=== PATIENT | male | born 1935 | race Caucasian/White ===

== ENCOUNTER 2018-09-12 07:56 | Inpatient (IN) | payer MEDICARE, OTHER ==
[2018-09-12 08:27] LABS: ABSOLUTE BASOPHILS # (AUTO) 0.2 10^3/uL (0.0-0.2); ABSOLUTE EOSINOPHILS # (AUTO) 0.2 10^3/uL (0.0-0.6); ABSOLUTE LYMPHOCYTES (AUTO) 1.9 10^3/uL (0.5-4.7); ABSOLUTE NEUT (AUTO) 9.2 10^3/uL (1.7-8.2); BASOPHILS % (AUTO) 1.2 % (0-2); EOSINOPHILS % (AUTO) 1.8 % (0-6); HEMATOCRIT 35.7 % (37.9-51.0); HEMOGLOBIN 11.9 g/dL (13.5-17.0); LYMPHOCYTES % (AUTO) 13.7 % (13-45); MEAN CORPUSCULAR HGB CONC 33.4 g/dL (32.0-36.0); MEAN CORPUSCULAR VOLUME 102 fl (80-97); MONOCYTES % (AUTO) 15.1 % (3-13); PLATELET COUNT 167 10^3/uL (150-450); RED BLOOD COUNT 3.51 10^6/uL (4.35-5.55); RED CELL DISTRIBUTION WIDTH 16.4 % (11.5-14.0); SEGMENTED NEUTROPHILS % (AUTO) 68.2 % (42-78); TOTAL CELLS COUNTED % (AUTO) 100 %; WHITE BLOOD COUNT 13.5 10^3/uL (4.0-10.5)
--- NOTE | 2018-09-12 08:40 | RADIOLOGY REPORT (SQ) ---
EXAM DESCRIPTION: CHEST SINGLE VIEW COMPLETED DATE/TIME: 09/12/2018 8:26 am REASON FOR STUDY: fever COMPARISON: None. EXAM PARAMETERS: NUMBER OF VIEWS: One view. TECHNIQUE: Single frontal radiographic view of the chest acquired. RADIATION DOSE: NA LIMITATIONS: None. FINDINGS: LUNGS AND PLEURA: No opacities, masses or pneumothorax. No pleural effusion. MEDIASTINUM AND HILAR STRUCTURES: No masses. Contour normal. HEART AND VASCULAR STRUCTURES: Heart normal in size. Normal vasculature. BONES: No acute findings. HARDWARE: None in the chest. OTHER: No other significant finding. IMPRESSION: NO ACUTE RADIOGRAPHIC FINDING IN THE CHEST. TECHNICAL DOCUMENTATION: JOB ID: [id number] [employer]- All Rights Reserved Reading location - IP/workstation name: [email or web address]
[2018-09-12 08:53] LABS: VENOUS BLOOD BASE EXCESS 3.2 mmol/L; VENOUS BLOOD HCO3 25.6 mmol/L (20-32); VENOUS BLOOD PCO2 33.4 mmHg (35-63); VENOUS BLOOD PH 7.5 (7.30-7.42)
--- NOTE | 2018-09-12 09:22 | ER Document Report ---
Entered by CATINA BARRERA SCRIBE 09/12/18 0826 Acting as scribe for:ELLIS VELASCO MD ED General - General Chief Complaint: Fever Stated Complaint: POSSIBLE SEPSIS Time Seen by Provider: 09/12/18 08:08 Mode of Arrival: Medic Information source: Emergency Med Personnel Notes: Patient is an 83 year old male with CHF, GERD, BPH, felix catheter, G tube, presents to the emergency department via EMS from home due to a fever. Nurse reports the patient was previously in a mcc in [place] and recently moved here with family. She reports the patient was recently diagnosed with an UTI on 09/09/18 and placed on Macrodantin. Patient does not speak therefo re no further history was obtained. EMS found the patient to be febrile with a temperature of 101.7 and administered 975mg of Tylenol rectally. Late history obtained from son: Son states for the last 2 days, the patient has been generally weak, not eating or drinking and running intermittent fevers. He states this morning around 0145, the patient became very "lethargic" and was noted to be febrile with a temperature of 102.0 so they proceeded to call EMS. Son states the patient is normally able to ambulate with a walker, talk and watch TV. He states the patient lived alone in [place], [place]. On 05/30/2018 the patient was ambulatory, driving, and taking care of his own affairs. On July 06, the son found the patient laying on the floor for what appeared to be several days and was subsequently admitted to ICU. He states it appeared the patient had a stroke but there was no evidence of one on scans. Son states the patient was released from rehab 13 days ago and has been living here in [place] with him since. He states the patient's PEG tube was placed while in the ICU but states the patient has not had to use it until onset of his recent symptoms. At home he has shown significant mental decline since his hospitalization, he watches TV, he mostly sits around. He occasionally ask for a pen and paper to take notes but never gets to the point of actually writing down anything. He was walking with a walker at home recently until the past 2 days where he is been somewhat lethargic, and not eating. He did start coughing a lot about 40 this morning. He did have his Felix catheter changed yesterday by home health. TRAVEL OUTSIDE OF THE [place] IN LAST 30 DAYS: No - Related Data Allergies/Adverse Reactions: aspirin Allergy (Verified 09/12/18 08:06) Penicillins Allergy (Verified 09/12/18 08:06) Past Medical History - General Information source: Relative, Emergency Med Personnel - Social History Smoking Status: Unknown if Ever Smoked Frequency of alcohol use: None Lives with: Family Family History: Reviewed & Not Pertinent - Past Medical History Cardiac Medical History: Reports: Hx Congestive Heart Failure Renal/ Medical History: Reports: Hx Benign Prostatic Hyperplasia GI Medical History: Reports: Hx Gastroesophageal Reflux Disease Review of Systems - Review of Systems Notes: ROS obtained from son, EMS and nursing staff. -: Yes ROS unobtainable due to patient's medical condition Constitutional: See HPI, Fever, Malaise, Weakness EENT: No symptoms reported Cardiovascular: No symptoms reported Respiratory: No symptoms reported Gastrointestinal: See HPI, Poor appetite, Poor fluid intake Genitourinary: No symptoms reported Male Genitourinary: No symptoms reported Musculoskeletal: No symptoms reported Skin: No symptoms reported Hematologic/Lymphatic: No symptoms reported Neurological/Psychological: No symptoms reported -: Yes All other systems reviewed and negative Physical Exam - Vital signs Vitals: Temp Pulse Resp BP Pulse Ox 101.7 F H 115 H 16 177/94 H 95 09/12/18 08:00 09/12/18 08:00 09/12/18 08:00 09/12/18 08:00 09/12/18 08:00 - Notes Notes: GENERAL: Alert, patient is not speaking and does not seem to understand what is going on. No acute distress. HEAD: Normocephalic, atraumatic. EYES: Pupils equal, round, and reactive to light. Extraocular movements intact. ENT: Oral mucosa dry, tongue midline. NECK: Full range of motion. Supple. Trachea midline. LUNGS: Clear to auscultation bilaterally, no wheezes, rales, or rhonchi. The patient does seem to be hyperventilating with a pulse-ox of 95%. HEART: Regular rate and rhythm. Tachycardia. No murmurs, gallops, or rubs. ABDOMEN: G tube in place. Soft, non-tender. Non-distended. Bowel sounds present in all 4 quadrants. No guarding, rigidity, or rebound. : Felix catheter in place. EXTREMITIES: Minimal movement of the extremities. No edema, radial and dorsalis pedis pulses 2/4 bilaterally. No cyanosis. Toes point downward with Babinksi testing, not hyperreflexive. NEUROLOGICAL: Alert. Does not speak. PSYCH: Does not speak. SKIN: Warm, dry. Skin is tight suggesting something like scleroderma. Course - Vital Signs Vital signs: Temp Pulse Resp BP Pulse Ox 99.6 F 115 H 29 H 145/81 H 96 09/12/18 12:55 09/12/18 08:00 09/12/18 13:01 09/12/18 13:01 09/12/18 13:01 - Laboratory Result Diagrams: 09/12/18 08:00 09/12/18 09:07 Laboratory results interpreted by me: 09/12/18 09/12/18 09/12/18 08:00 08:36 09:07 WBC 13.5 H RBC 3.51 L Hgb 11.9 L Hct 35.7 L MCV 102 H MCH 34.0 H RDW 16.4 H Monocytes % 15.1 H Absolute Neutrophils 9.2 H Absolute Monocytes 2.0 H VBG pH 7.50 H VBG pCO2 33.4 L BUN 21 H Creatine Kinase < 20 L Albumin 3.2 L Urine Protein Urine Urobilinogen Ur Leukocyte Esterase Urine Ascorbic Acid 09/12/18 09:36 WBC RBC Hgb Hct MCV MCH RDW Monocytes % Absolute Neutrophils Absolute Monocytes VBG pH VBG pCO2 BUN Creatine Kinase Albumin Urine Protein >=500 H Urine Urobilinogen 4.0 H Ur Leukocyte Esterase MODERATE H Urine Ascorbic Acid 40 H - Diagnostic Test Radiology reviewed: Image reviewed, Reports reviewed - X-ray does not show an acute process. - EKG Interpretation by Me EKG shows normal: Sinus rhythm, [place], Intervals, QRS Complexes, ST-T Waves Rate: Tachycardia - 113 [place]/QRS: Left axis deviation When compared to previous EKG there are: Previous EKG unavailable - Consults Laura Conn NP Time consulted: 11:16 Consulted provider: will come to ER Critical Care Note - Critical Care Note Total time excluding time spent on procedures (mins): 35 Discharge - Discharge Clinical Impression: Fever Qualifiers: Fever type: unspecified Qualified Code(s): R50.9 - Fever, unspecified Urinary tract infection Qualifiers: Urinary tract infection type: catheter-associated UTI Indwelling urinary catheter type: indwelling urethral catheter Encounter type: initial encounter Qualified Code(s): T83.511A - Infection and inflammatory reaction due to indwelling urethral catheter, initial encounter Altered mental status Qualifiers: Altered mental status type: unspecified Qualified Code(s): R41.82 - Altered mental status, unspecified Condition: Stable Disposition: ADMITTED INPATIENT Admitting Provider: [facility] (Hospitalist) Unit Admitted: Telemetry Scribe Attestation: 09/12/18 09:31 I personally performed the services described in the documentation, reviewed and edited the documentation which was dictated to the scribe in my presence, and it accurately records my words and actions. I personally performed the services described in the documentation, reviewed and edited the documentation which was dictated to the scribe in my presence, and it accurately records my words and actions.
[2018-09-12 09:49] LABS: ALANINE AMINOTRANSFERASE 25 U/L (21-72); ALBUMIN 3.2 g/dL (3.5-5.0); ALKALINE PHOSPHATASE 85 U/L (38-126); ANION GAP 10 (5-19); ASPARTATE AMINO TRANSFERASE 44 U/L (17-59); BILIRUBIN,DIRECT 0.4 mg/dL (0.0-0.4); BILIRUBIN,TOTAL 0.7 mg/dL (0.2-1.3); BLOOD UREA NITROGEN 21 mg/dL (7-20); CALCIUM 8.8 mg/dL (8.4-10.2); CARBON DIOXIDE 25 mmol/L (22-30); CHLORIDE 105 mmol/L (98-107); GLUCOSE 96 mg/dL (75-110); SODIUM 140.4 mmol/L (137-145); TOTAL PROTEIN 7.9 g/dL (6.3-8.2)
[2018-09-12 09:51] LABS: CREATINE KINASE < 20 U/L (55-170)
[2018-09-12 09:56] LABS: AMORPHOUS SEDIMENT,URINE TRACE /HPF; APPEARANCE,URINE CLOUDY; BILIRUBIN,URINE NEGATIVE (NEGATIVE); COLOR,URINE AMBER; GLUCOSE, URINE NEGATIVE (NEGATIVE); KETONES,URINE NEGATIVE (NEGATIVE); LEUKOCYTE ESTERASE,URINE MODERATE (NEGATIVE); NITRITE,URINE NEGATIVE (NEGATIVE); PROTEIN,URINE >=500 mg/dL (NEGATIVE); URINE SPECIFIC GRAVITY 1.022
[2018-09-12 10:03] LABS: CREATINE KINASE MB < 0.22 ng/mL (<4.55)
[2018-09-12 10:06] LABS: TROPONIN I 0.064 ng/mL
[2018-09-12] MEDS ORDERED: LEVOFLOXACIN 750 MG/D5W RTU 750 MG/150 ML RTUPB IV ONE (10:36)
[2018-09-12] MEDS ORDERED: NORMAL SALINE 1000 ML 1,000 ML IV ONE (11:40)
[2018-09-12] MEDS ORDERED: NORMAL SALINE 1000 ML 1,000 ML IV PRN (12:28)
[2018-09-12] MEDS ORDERED: CEFAZOLIN 2 GM/D5W RTU 2 GM/50 ML RTUPB IV SCH ×2 (15:00→18:00)
[2018-09-12] MEDS: ENOXAPARIN SODIUM INJ 30 MG/0.3 ML DISP.SYRIN SUBCUT SCH (15:20)
--- NOTE | 2018-09-12 17:07 | PDOC H&P ---
History of Present Illness Admission Date/PCP: 09/12/18 11:42 FREDDIE DONALDSON DO Patient complains of: AMS History of Present Illness: SHANICE STRINGER SR is a 83 year old male with a PMH of CHF, UTI, encephalopathy. He presented to [facility] for AMS and fever (T-max 102). The patient was recently seen by his PCP and was diagnosed with a UTI 09/10. He was started on p.o. Macrobid, but family states the patient became more and more altered over the last 48 hours. Today, he spiked a fever to 102, which prompted the family to bring him to the emergency department. Of note, the patient suffered a traumatic injury a few months ago and was hospitalized in [place] and subsequently spent 1 month in acute rehab. There is no evidence of stroke on MRI, the patient's functional status is now minimally ambulatory, requiring a PEG tube for feeding and has a chronic indwelling Amaral catheter. Upon arrival to the emergency department, the patient's vital signs were BP 177/94 T 001.7 HR 115 SPO2 95% on RA. EKG shows sinus tachycardia, no infarction or ischemia. CXR is WNL, no significant cardiopulmonary pathology. Laboratory studies indicative of leukocytosis (WBC 13), mild anemia (Hgb 11), urinalysis indicative of UTI (moderate leukoesterase, WBC 153). Upon assessment, the patient is resting comfortably in bed on room air with family at bedside. Patient is able to tell me his name, but he does not know the date or his location or why he is in the hospital. Patient appears very thin, almost cachectic. His ribs are visible. His arms and legs are very thin. The patient does have full range of motion with his extremities. Lungs are clear to auscultation. (+) Systolic murmur. Abdomen soft, nontender, nondistended. Amaral catheter in place, urine appears yellow and cloudy. Plan to admit to hospitalist service for complicated urinary tract infection. Past Medical History Cardiac Medical History: Reports: Congestive Heart Failure GI Medical History: Reports: Gastroesophageal Reflux Disease Past Surgical History Past Surgical History: Reports: Other - PEG TUBE PLACEMENT Social History Information Source: Patient Lives with: Family Smoking Status: Former Smoker Frequency of Alcohol Use: None Hx Recreational Drug Use: Yes Drugs: None Hx Prescription Drug Abuse: Yes - Advance Directive Resuscitation Status: Do Not Resuscitate Family History Family History: Reviewed & Not Pertinent Parental Family History Reviewed: Yes Children Family History Reviewed: Yes Sibling(s) Family History Reviewed.: Yes Medication/Allergy Home Medications: Furosemide [Lasix 20 mg Tablet] 20 mg PO QAM 09/12/18 Nitrofurantoin Macrocrystal [Macrodantin] 100 mg PO BID 09/12/18 Pantoprazole Sodium [Protonix [address] Tablet] 40 mg PO BID@0600,1700 09/12/18 Tamsulosin HCl [Flomax] 0.4 mg PO QPM 09/12/18 Allergies/Adverse Reactions: aspirin Allergy (Verified 09/12/18 08:06) Penicillins Allergy (Verified 09/12/18 08:06) Review of Systems ROS unobtainable: Due to mental status Physical Exam Vital Signs: Temp Pulse Resp BP Pulse Ox 98.2 F 95 21 H 138/83 H 95 09/12/18 14:11 09/12/18 14:11 09/12/18 14:11 09/12/18 14:11 09/12/18 14:11 Intake & Output 09/11/18 09/12/18 09/13/18 06:59 06:59 06:59 Intake Total 1150 Balance 1150 Weight 61.7 kg General appearance: PRESENT: thin Head exam: PRESENT: atraumatic Eye exam: PRESENT: conjunctiva pink, PERRLA Mouth exam: PRESENT: moist, tongue midline Teeth exam: PRESENT: poor dentation Neck exam: PRESENT: full ROM Respiratory exam: PRESENT: clear to auscultation tram, symmetrical, unlabored Cardiovascular exam: PRESENT: RRR Pulses: PRESENT: normal radial pulses, normal dorsalis pedis pul GI/Abdominal exam: PRESENT: soft, other - peg tube in place. ABSENT: distended, tenderness Rectal exam: PRESENT: deferred Extremities exam: ABSENT: pedal edema Musculoskeletal exam: PRESENT: normal inspection. ABSENT: ambulatory Neurological exam: PRESENT: alert, awake, oriented to person. ABSENT: oriented to place, oriented to time, oriented to situation Psychiatric exam: ABSENT: appropriate affect - confused Skin exam: PRESENT: dry, intact, normal color Results Laboratory Results: 09/12/18 08:00 09/12/18 09:07 09/12/18 09/12/18 09/12/18 08:00 08:00 08:36 WBC 13.5 H RBC 3.51 L Hgb 11.9 L Hct 35.7 L MCV 102 H MCH 34.0 H MCHC 33.4 RDW 16.4 H Plt Count 167 Seg Neutrophils % 68.2 Lymphocytes % 13.7 Monocytes % 15.1 H Eosinophils % 1.8 Basophils % 1.2 Absolute Neutrophils 9.2 H Absolute Lymphocytes 1.9 Absolute Monocytes 2.0 H Absolute Eosinophils 0.2 Absolute Basophils 0.2 VBG pH VBG pCO2 VBG HCO3 VBG Base Excess Sodium Cancelled Potassium Cancelled Chloride Cancelled Carbon Dioxide Cancelled Anion Gap Cancelled BUN Cancelled Creatinine Cancelled Est GFR ( Amer) Cancelled Est GFR (Non-Af Amer) Cancelled Glucose Cancelled Lactic Acid 1.5 Calcium Cancelled Magnesium Cancelled Total Bilirubin Cancelled AST Cancelled ALT Cancelled Alkaline Phosphatase Cancelled Total Protein Cancelled Albumin Cancelled Urine Color Urine Appearance Urine pH Ur Specific [place] Urine Protein Urine Glucose (UA) Urine Ketones Urine Blood Urine Nitrite Ur Leukocyte Esterase Urine WBC (Auto) Urine RBC (Auto) 09/12/18 09/12/18 09/12/18 08:36 09:07 09:36 WBC RBC Hgb Hct MCV MCH MCHC RDW Plt Count Seg Neutrophils % Lymphocytes % Monocytes % Eosinophils % Basophils % Absolute Neutrophils Absolute Lymphocytes Absolute Monocytes Absolute Eosinophils Absolute Basophils VBG pH 7.50 H VBG pCO2 33.4 L VBG HCO3 25.6 VBG Base Excess 3.2 Sodium 140.4 Potassium 4.0 Chloride 105 Carbon Dioxide 25 Anion Gap 10 BUN 21 H Creatinine 1.01 Est GFR ( Amer) > 60 Est GFR (Non-Af Amer) > 60 Glucose 96 Lactic Acid Calcium 8.8 Magnesium 1.7 Total Bilirubin 0.7 AST 44 ALT 25 Alkaline Phosphatase 85 Total Protein 7.9 Albumin 3.2 L Urine Color JUANCHO Urine Appearance CLOUDY Urine pH 6.0 Ur Specific [place] 1.022 Urine Protein >=500 H Urine Glucose (UA) NEGATIVE Urine Ketones NEGATIVE Urine Blood NEGATIVE Urine Nitrite NEGATIVE Ur Leukocyte Esterase MODERATE H Urine WBC (Auto) 153 Urine RBC (Auto) 18 09/12/18 09/12/18 09/12/18 08:00 08:00 09:07 Creatine Kinase Cancelled CK-MB (CK-2) Cancelled < 0.22 Troponin I Cancelled 0.064 09/12/18 09:07 Creatine Kinase < 20 L CK-MB (CK-2) Troponin I Impressions: Chest X-Ray 09/12/18 08:16 IMPRESSION: NO ACUTE RADIOGRAPHIC FINDING IN THE CHEST. Status: Imported from PACS Assessment and Plan - Diagnosis (1) Altered mental status Qualifiers: Altered mental status type: unspecified Qualified Code(s): R41.82 - Altered mental status, unspecified Is this a current diagnosis for this admission?: Yes Plan: Secondary to infection Following IVF resuscitation in the emergency department, [facility] patient's mental status returned to close to baseline Maintenance IVF Nursing bedside swallow evaluation, if failed may use PEG for enteral feeding (2) Urinary tract infection Qualifiers: Urinary tract infection type: catheter-associated UTI Indwelling urinary catheter type: indwelling urethral catheter Encounter type: initial encounter Qualified Code(s): T83.511A - Infection and inflammatory reaction due to indwelling urethral catheter, initial encounter; N39.0 - Urinary tract infection, site not specified Is this a current diagnosis for this admission?: Yes Plan: Diagnosed with UTI on 09/09 Treated with Macrobid p.o. Patient remains symptomatic Initially urinalysis today indicative of UTI Will obtain culture and sensitivities Empirically treated with IV cefepime (3) CHF (congestive heart failure) Qualifiers: Heart failure type: unspecified Is this a current diagnosis for this admission?: Yes Plan: According to family, the patient was diagnosed with CHF during his previous hospitalization in [place] Attempted to obtain records from [place], [place] Not taking any antihypertensives, only on daily Lasix, which is currently on hold for treatment of complicated UTI - Time Time Spent with patient: 15-24 minutes Medications reviewed and adjusted accordingly: Yes Anticipated discharge: Home - Inpatient Certification Based on my medical assessment, after consideration of the patient's comorbidities, presenting symptoms, or acuity I expect that the services needed warrant INPATIENT care.: Yes I certify that my determination is in accordance with my understanding of Medicare's requirements for reasonable and necessary INPATIENT services [42 CFR 412.3e].: Yes Medical Necessity: Need For IV Fluids, Need for IV Antibiotics, Risk of Complication if Not Cared For in Hospital
[2018-09-12] MEDS ORDERED: CEFEPIME 2 GM/D5W RTU 2 GM/50 ML RTUPB IV SCH (17:30)
[2018-09-12] MEDS ORDERED: CEFAZOLIN SODIUM 2 GM in DEXTROSE 5%-WATER 100 ML IV SCH (18:00)
[2018-09-12] MEDS: PANTOPRAZOLE SODIUM 40 MG PACKET.DR NG SCH (18:07)
[2018-09-12] MEDS: TAMSULOSIN HCL 0.4 MG CAP.SR.24H PO SCH (18:10)
--- NOTE | 2018-09-12 19:27 | EKG REPORT ---
SEVERITY:- DEFECTIVE ECG - BORDERLINE LEFT AXIS DEVIATION SINUS RHYTHM BASELINE ARTIFACT : Confirmed by: Renita Lu MD 12-Sep-2018 19:25:43
[2018-09-12] MEDS: CEFEPIME HCL 2 GM in DEXTROSE 5%-WATER 50 ML IV SCH (21:41)
[2018-09-13] MEDS: PANTOPRAZOLE SODIUM 40 MG PACKET.DR NG SCH ×2 (05:30→17:41)
[2018-09-13 06:10] LABS: HEMATOCRIT 29.9 % (37.9-51.0); HEMOGLOBIN 10.3 g/dL (13.5-17.0); MEAN CORPUSCULAR HEMOGLOBIN 34.5 pg (27.0-33.4); MEAN CORPUSCULAR HGB CONC 34.3 g/dL (32.0-36.0); MEAN CORPUSCULAR VOLUME 100 fl (80-97); RED BLOOD COUNT 2.98 10^6/uL (4.35-5.55); WHITE BLOOD COUNT 9.4 10^3/uL (4.0-10.5)
[2018-09-13 06:30] LABS: ALANINE AMINOTRANSFERASE 22 U/L (21-72); ALBUMIN 2.5 g/dL (3.5-5.0); ALKALINE PHOSPHATASE 62 U/L (38-126); ANION GAP 7 (5-19); ASPARTATE AMINO TRANSFERASE 36 U/L (17-59); BILIRUBIN,DIRECT 0.3 mg/dL (0.0-0.4); BLOOD UREA NITROGEN 20 mg/dL (7-20); CALCIUM 8.5 mg/dL (8.4-10.2); CARBON DIOXIDE 22 mmol/L (22-30); CHLORIDE 108 mmol/L (98-107); CHOLESTEROL 127.84 mg/dL (0-200); GLUCOSE 89 mg/dL (75-110); POTASSIUM 3.8 mmol/L (3.6-5.0); SODIUM 136.8 mmol/L (137-145); TOTAL PROTEIN 6.5 g/dL (6.3-8.2); TRIGLYCERIDES 65 mg/dL (<150)
[2018-09-13 06:40] LABS: PLATELET COUNT 92 10^3/uL (150-450)
[2018-09-13 06:41] LABS: DIRECT LDL 68 mg/dL (<100)
[2018-09-13] MEDS ORDERED: FUROSEMIDE 20 MG TABLET PO SCH (08:00)
[2018-09-13] MEDS: ENOXAPARIN SODIUM INJ 30 MG/0.3 ML DISP.SYRIN SUBCUT SCH (10:31)
[2018-09-13] MEDS: CEFEPIME HCL 2 GM in DEXTROSE 5%-WATER 50 ML IV SCH ×2 (10:36→21:14)
[2018-09-13] MEDS ORDERED: VANCOMYCIN HCL 0 MG in DEXTROSE 5%-WATER 250 ML IV NR (10:45)
[2018-09-13] MEDS: VANCOMYCIN HCL 1,250 MG in DEXTROSE 5%-WATER 250 ML IV SCH (14:24)
--- NOTE | 2018-09-13 15:55 | PDOC PROGRESS REPORT ---
Subjective Progress Note for:: 09/13/18 Subjective:: SHANICE STRINGER SR is a 83 year old male with a PMH of CHF, UTI, encephalopathy. He is admitted for complicated UTI. Patient was seen this morning on rounds, family is at the bedside. Patient is eating his breakfast, able to tolerate roughly 50%. The patient is alert and oriented x 3, able to answer questions appropriately. When probed with more complex questions (why are you in the hospital?), He is unable to answer. The patient also makes interjections that have nothing to do with the current conversation. Original C&S from UA done 09/10 is (+) for e.coli and enterococcous. Continue to treat with Cefepime and vancomycin. Awaiting C&S from repeat UA. The patient will remain hospitalized for complicated UTI. Reason For Visit: UTI Physical Exam Vital Signs: Temp Pulse Resp BP Pulse Ox 98.4 F 80 18 131/50 H 96 09/13/18 12:00 09/13/18 12:00 09/13/18 12:00 09/13/18 12:00 09/13/18 12:00 Intake & Output 09/12/18 09/13/18 09/14/18 06:59 06:59 06:59 Intake Total 2158 170 Output Total 700 Balance 1458 170 Weight 63.7 kg General appearance: PRESENT: no acute distress, thin Head exam: PRESENT: atraumatic, normocephalic Eye exam: PRESENT: conjunctiva pink, EOMI, PERRLA. ABSENT: scleral icterus Ear exam: PRESENT: normal external ear exam Mouth exam: PRESENT: moist, tongue midline Teeth exam: PRESENT: poor dentation Neck exam: ABSENT: carotid bruit, JVD, lymphadenopathy, thyromegaly Respiratory exam: PRESENT: clear to auscultation tram, symmetrical, unlabored. ABSENT: rales, rhonchi, wheezes Cardiovascular exam: PRESENT: RRR. ABSENT: diastolic murmur, rubs, systolic murmur Pulses: PRESENT: normal radial pulses, normal dorsalis pedis pul Vascular exam: PRESENT: pallor GI/Abdominal exam: PRESENT: normal bowel sounds, soft, other - PEG TUBE IN PLACE. CURRENTLY NOT IN USE. ABSENT: distended, guarding, mass, organolmegaly, rebound, tenderness Rectal exam: PRESENT: deferred Extremities exam: PRESENT: full ROM. ABSENT: calf tenderness, clubbing, pedal edema Musculoskeletal exam: PRESENT: full ROM Neurological exam: PRESENT: alert, awake, oriented to person, oriented to place, oriented to time, oriented to situation Psychiatric exam: PRESENT: appropriate affect, normal mood Skin exam: PRESENT: dry, intact, warm. ABSENT: cyanosis, rash Results Laboratory Results: 09/13/18 05:57 09/13/18 05:57 09/13/18 09/13/18 05:57 05:57 WBC 9.4 RBC 2.98 L Hgb 10.3 L Hct 29.9 L MCV 100 H MCH 34.5 H MCHC 34.3 RDW 16.0 H Plt Count 92 L Sodium 136.8 L Potassium 3.8 Chloride 108 H Carbon Dioxide 22 Anion Gap 7 BUN 20 Creatinine 0.99 Est GFR ( Amer) > 60 Est GFR (Non-Af Amer) > 60 Glucose 89 Calcium 8.5 Phosphorus 3.0 Magnesium 1.7 Total Bilirubin 1.0 AST 36 ALT 22 Alkaline Phosphatase 62 Total Protein 6.5 Albumin 2.5 L Triglycerides 65 Cholesterol 127.84 LDL Cholesterol Direct 68 VLDL Cholesterol 13.0 HDL Cholesterol 37 L 09/12/18 09/12/18 09/12/18 08:00 08:00 09:07 Creatine Kinase Cancelled CK-MB (CK-2) Cancelled < 0.22 Troponin I Cancelled 0.064 NT-Pro-B Natriuret Pep 09/12/18 09/12/18 09/13/18 09:07 18:50 01:05 Creatine Kinase < 20 L CK-MB (CK-2) Troponin I 0.041 0.034 NT-Pro-B Natriuret Pep 09/13/18 05:57 Creatine Kinase CK-MB (CK-2) Troponin I NT-Pro-B Natriuret Pep 1870 H Impressions: Chest X-Ray 09/12/18 08:16 IMPRESSION: NO ACUTE RADIOGRAPHIC FINDING IN THE CHEST. Status: Imported from PACS Assessment and Plan - Diagnosis (1) Altered mental status Qualifiers: Altered mental status type: unspecified Qualified Code(s): R41.82 - Altered mental status, unspecified Is this a current diagnosis for this admission?: Yes Plan: Improving Patient is slightly confused, but family reports he is (basically) back to baseline Secondary to infection Following IVF resuscitation in the emergency department Maintenance IVF May use PEG for enteral feeding is patient exhibits anorexia (2) Urinary tract infection Qualifiers: Urinary tract infection type: catheter-associated UTI Indwelling urinary catheter type: indwelling urethral catheter Encounter type: initial encounter Qualified Code(s): T83.511A - Infection and inflammatory reaction due to indwelling urethral catheter, initial encounter; N39.0 - Urinary tract infection, site not specified Is this a current diagnosis for this admission?: Yes Plan: Diagnosed with UTI on 09/09 Treated with Macrobid p.o. C&S grew e.coli and enterococcous e.coli (gram negative) susceptible to macrobid but not Enterococcus faecalis (gram positive) Patient remained symptomatic Initial urinalysis in ED indicative of UTI Culture and sensitivities pending Empirically treated with IV cefepime and vancomycin (3) CHF (congestive heart failure) Qualifiers: Heart failure type: unspecified Is this a current diagnosis for this admission?: Yes Plan: According to family, the patient was diagnosed with CHF during his previous hospitalization in [place] Attempted to obtain records from [place], [place] Not taking any antihypertensives, only on daily Lasix, which is currently on hold for treatment of complicated UTI - Time Time Spent with patient: 15-24 minutes Medications reviewed and adjusted accordingly: Yes Anticipated discharge: Home - Inpatient Certification Based on my medical assessment, after consideration of the patient's comorbidities, presenting symptoms, or acuity I expect that the services needed warrant INPATIENT care.: Yes I certify that my determination is in accordance with my understanding of Medicare's requirements for reasonable and necessary INPATIENT services [42 CFR 412.3e].: Yes Medical Necessity: Need for IV Antibiotics, Risk of Complication if Not Cared For in Hospital
[2018-09-13] MEDS: TAMSULOSIN HCL 0.4 MG CAP.SR.24H PO SCH (17:41)
[2018-09-13] MEDS: ACETAMINOPHEN 325 MG TABLET PO PRN (21:13)
[2018-09-14] MEDS: PANTOPRAZOLE SODIUM 40 MG PACKET.DR NG SCH ×2 (06:27→18:29)
--- NOTE | 2018-09-14 06:28 | RADIOLOGY REPORT (SQ) ---
EXAM DESCRIPTION: XR SHOULDER 2 OR MORE VIEWS COMPLETED DATE/TME: 09/13/2018 00:00 CLINICAL HISTORY: 83 years Male, new onset shoulder pain COMPARISON: None. Findings: Mild osteoarthritis. Atherosclerotic vascular disease. Bones, joints, and soft tissues of the LEFT XR SHOULDER 2 OR MORE VIEWS appear otherwise unremarkable. IMPRESSION: No acute findings.
[2018-09-14] MEDS: ENOXAPARIN SODIUM INJ 30 MG/0.3 ML DISP.SYRIN SUBCUT SCH (10:03)
[2018-09-14] MEDS: CEFEPIME HCL 2 GM in DEXTROSE 5%-WATER 50 ML IV SCH ×2 (10:09→22:16)
[2018-09-14] MEDS: VANCOMYCIN HCL 1,250 MG in DEXTROSE 5%-WATER 250 ML IV SCH (14:45)
[2018-09-14] MEDS ORDERED: SODIUM BICARBONATE 650 MG TABLET PO ONE (15:30)
[2018-09-14 16:13] LABS: HEMATOCRIT 29.3 % (37.9-51.0); MEAN CORPUSCULAR HEMOGLOBIN 34.3 pg (27.0-33.4); MEAN CORPUSCULAR HGB CONC 34.1 g/dL (32.0-36.0); MEAN CORPUSCULAR VOLUME 101 fl (80-97); PLATELET COUNT 100 10^3/uL (150-450); RED BLOOD COUNT 2.91 10^6/uL (4.35-5.55); RED CELL DISTRIBUTION WIDTH 15.9 % (11.5-14.0); WHITE BLOOD COUNT 6.1 10^3/uL (4.0-10.5)
--- NOTE | 2018-09-14 16:17 | PDOC PROGRESS REPORT ---
Subjective Progress Note for:: 09/14/18 Subjective:: SHANICE STRINGER SR is a 83 year old male with a PMH of CHF, UTI, encephalopathy. He is admitted for complicated UTI. Patient was seen this morning on rounds, family is at the bedside. The patient is alert and oriented x 3, able to answer questions appropriately. He is very sleepy, states he is ready for his mid-afternoon nap. Will stop patient's IVF since he seems to be tolerating his diet and don't want to overload a patient with CHF. Alternatively, we will offer intermittent water boluses via his PEG tube. Original C&S from [facility]A done 09/10 is (+) for e.coli and enterococcous. Continue to treat with Cefepime and vancomycin. Awaiting C&S from repeat UA. The patient will remain hospitalized for complicated UTI. Reason For Visit: UTI Physical Exam Vital Signs: Temp Pulse Resp BP Pulse Ox 97.6 F 81 16 162/70 H 97 09/14/18 08:00 09/14/18 14:00 09/14/18 08:00 09/14/18 08:00 09/14/18 08:00 Intake & Output 09/13/18 09/14/18 09/15/18 06:59 06:59 06:59 Intake Total 2158 2130 50 Output Total 700 1320 Balance 1458 810 50 Weight 63.7 kg 65.3 kg General appearance: PRESENT: thin Eye exam: PRESENT: conjunctiva pink, PERRLA Mouth exam: PRESENT: moist Teeth exam: PRESENT: poor dentation Neck exam: PRESENT: full ROM Respiratory exam: PRESENT: clear to auscultation tram, symmetrical, unlabored Cardiovascular exam: PRESENT: RRR Pulses: PRESENT: normal radial pulses, normal dorsalis pedis pul Vascular exam: PRESENT: normal capillary refill GI/Abdominal exam: PRESENT: normal bowel sounds, soft, other - PEG TUBE IN PLACE. ABSENT: distended, tenderness Rectal exam: PRESENT: deferred Extremities exam: PRESENT: full ROM Musculoskeletal exam: PRESENT: ambulatory, full ROM Neurological exam: PRESENT: alert, awake, oriented to person, oriented to place. ABSENT: oriented to time, oriented to situation Psychiatric exam: PRESENT: appropriate affect Skin exam: PRESENT: dry, intact, normal color Results Laboratory Results: 09/14/18 12:18 09/13/18 05:57 09/14/18 12:18 WBC Cancelled RBC Cancelled Hgb Cancelled Hct Cancelled MCV Cancelled MCH Cancelled MCHC Cancelled RDW Cancelled Plt Count Cancelled 09/12/18 09/12/18 09/12/18 08:00 08:00 09:07 Creatine Kinase Cancelled CK-MB (CK-2) Cancelled < 0.22 Troponin I Cancelled 0.064 NT-Pro-B Natriuret Pep 09/12/18 09/12/18 09/13/18 09:07 18:50 01:05 Creatine Kinase < 20 L CK-MB (CK-2) Troponin I 0.041 0.034 NT-Pro-B Natriuret Pep 09/13/18 05:57 Creatine Kinase CK-MB (CK-2) Troponin I NT-Pro-B Natriuret Pep 1870 H Impressions: Chest X-Ray 09/12/18 08:16 IMPRESSION: NO ACUTE RADIOGRAPHIC FINDING IN THE CHEST. Shoulder X-Ray 09/13/18 00:00 IMPRESSION: No acute findings. Status: Imported from PACS Assessment and Plan - Diagnosis (1) Altered mental status Qualifiers: Altered mental status type: unspecified Qualified Code(s): R41.82 - Altered mental status, unspecified Is this a current diagnosis for this admission?: Yes Plan: Improving Secondary to infection Patient is slightly confused, but family reports he is (basically) back to baseline Following IVF resuscitation in the emergency department Maintenance IVF May use PEG for enteral feeding is patient exhibits anorexia (2) Urinary tract infection Qualifiers: Urinary tract infection type: catheter-associated UTI Indwelling urinary catheter type: indwelling urethral catheter Encounter type: initial encounter Qualified Code(s): T83.511A - Infection and inflammatory reaction due to indwelling urethral catheter, initial encounter; N39.0 - Urinary tract infection, site not specified Is this a current diagnosis for this admission?: Yes Plan: Diagnosed with UTI on 09/09 Treated with Macrobid p.o. C&S grew e.coli and enterococcous e.coli (gram negative) susceptible to macrobid but not Enterococcus faecalis (gram positive) Patient remained symptomatic and became febrile even after antibiotic initiation Initial urinalysis in ED indicative of UTI Culture and sensitivities pending Empirically treated with IV cefepime and vancomycin (3) CHF (congestive heart failure) Qualifiers: Heart failure type: unspecified Is this a current diagnosis for this admission?: Yes Plan: According to family, the patient was diagnosed with CHF during his previous hospitalization in [place] Able to obtain records from [place], [place] ECHOcardiogram shows LVEF 55% Not taking any antihypertensives, only on daily Lasix, which is currently on hold for treatment of complicated UTI - Time Time Spent with patient: 15-24 minutes Medications reviewed and adjusted accordingly: Yes Anticipated discharge: Home, Home with Homehealth Within: within 48 hours - Inpatient Certification Based on my medical assessment, after consideration of the patient's comorbidities, presenting symptoms, or acuity I expect that the services needed warrant INPATIENT care.: Yes I certify that my determination is in accordance with my understanding of Medicare's requirements for reasonable and necessary INPATIENT services [42 CFR 412.3e].: Yes Medical Necessity: Risk of Complication if Not Cared For in Hospital - Plan Summary Plan Summary: THE FAMILY DOES NOT WANT TO SEND PATIENT TO REHAB. THEY STATE THEY HAVE ALL THE RESOURCES AT HOME TO CARE FOR THE PATIENT. ONCE C&S HAVE RESULTED, WILL CREATE NEW TREATMENT REGIMEN AND SEND PATIENT HOME IN THE CARE OF HIS FAMILY.
[2018-09-14] MEDS ORDERED: LIPASE/PROTEASE/AMYLASE 1 CAP CAPSULE.DR PO ONE (16:30)
[2018-09-14 16:35] LABS: ALANINE AMINOTRANSFERASE 20 U/L (21-72); ALBUMIN 2.5 g/dL (3.5-5.0); ALKALINE PHOSPHATASE 68 U/L (38-126); ANION GAP 8 (5-19); ASPARTATE AMINO TRANSFERASE 34 U/L (17-59); BILIRUBIN,DIRECT 0.3 mg/dL (0.0-0.4); BILIRUBIN,TOTAL 0.4 mg/dL (0.2-1.3); BLOOD UREA NITROGEN 15 mg/dL (7-20); CALCIUM 8.4 mg/dL (8.4-10.2); CARBON DIOXIDE 23 mmol/L (22-30); CHLORIDE 108 mmol/L (98-107); GLUCOSE 135 mg/dL (75-110); PHOSPHORUS 2.8 mg/dL (2.5-4.5); POTASSIUM 4.3 mmol/L (3.6-5.0); SODIUM 138.9 mmol/L (137-145); TOTAL PROTEIN 6.4 g/dL (6.3-8.2)
[2018-09-14] MEDS: TAMSULOSIN HCL 0.4 MG CAP.SR.24H PO SCH (18:28)
[2018-09-14] MEDS: ACETAMINOPHEN 325 MG TABLET PO PRN (22:22)
[2018-09-15 05:27] LABS: HEMATOCRIT 29.9 % (37.9-51.0); HEMOGLOBIN 10.3 g/dL (13.5-17.0); MEAN CORPUSCULAR HEMOGLOBIN 34.7 pg (27.0-33.4); MEAN CORPUSCULAR HGB CONC 34.4 g/dL (32.0-36.0); MEAN CORPUSCULAR VOLUME 101 fl (80-97); PLATELET COUNT 103 10^3/uL (150-450); RED BLOOD COUNT 2.96 10^6/uL (4.35-5.55); WHITE BLOOD COUNT 7.3 10^3/uL (4.0-10.5)
[2018-09-15 05:50] LABS: ALANINE AMINOTRANSFERASE 23 U/L (21-72); ALBUMIN 2.6 g/dL (3.5-5.0); ALKALINE PHOSPHATASE 66 U/L (38-126); ANION GAP 7 (5-19); ASPARTATE AMINO TRANSFERASE 36 U/L (17-59); BILIRUBIN,DIRECT 0.3 mg/dL (0.0-0.4); BILIRUBIN,TOTAL 0.6 mg/dL (0.2-1.3); BLOOD UREA NITROGEN 15 mg/dL (7-20); CALCIUM 8.5 mg/dL (8.4-10.2); CARBON DIOXIDE 24 mmol/L (22-30); CHLORIDE 108 mmol/L (98-107); GLUCOSE 84 mg/dL (75-110); POTASSIUM 3.9 mmol/L (3.6-5.0); SODIUM 138.5 mmol/L (137-145); TOTAL PROTEIN 6.6 g/dL (6.3-8.2)
[2018-09-15] MEDS: PANTOPRAZOLE SODIUM 40 MG PACKET.DR NG SCH ×2 (05:59→17:35)
[2018-09-15] MEDS: CEFEPIME HCL 2 GM in DEXTROSE 5%-WATER 50 ML IV SCH (11:45)
[2018-09-15] MEDS: ENOXAPARIN SODIUM INJ 30 MG/0.3 ML DISP.SYRIN SUBCUT SCH (11:45)
[2018-09-15] MEDS: VANCOMYCIN HCL 1,250 MG in DEXTROSE 5%-WATER 250 ML IV SCH (14:04)
--- NOTE | 2018-09-15 14:22 | Progress Note ---
Provider Note Provider Note: ID Consult Note Asked to review patient's chart. Mr. Loza is a 83 year old man admitted on 09/12/18 for fever and AMS. He has PMH including GERD, BPH, CHF. He also has a chronic indwelling Amaral catheter. ROS was unobtainable due to encephalopathy, and his exam was notable for cachectic appearance, poor dentition, systolic murmur, soft abdomen with PEG tube in place, and Amaral draining cloudy yellow urine but otherwise no remarkable findings. Blood cultures were negative. Urine grew E coli 50-60k cfu and 10-20k cfu E faecalis. He was receiving Macrobid as an outpatient prior to admission. Pt is receiving both IV vancomycin and IV cefepime. The E coli is resistant to ampicillin and Amoxicillin. Amaral was reportedly changed on 09/11/18. Pt also has in his chart "penicillin allergy" with no known reaction. Impression/Recommendations For complicated UTI, pt has already received 3 days of treatment with IV vancomycin and cefepime. Treatment could be continued as an outpatient or at his intermediate with fosfomycin 3 grams every 3 days for another two doses. It is typically mixed with 90 mL water to dissolve it. Fosfomycin can be administered via PEG tube this way, with the tube flushed before and after administration. Fosfomycin is best taken on an empty stomach, so it might be advisable not to administer feeds within 1-2 hours of the medication. Real Krueger MD [facility] Infectious Diseases pager [phone]
[2018-09-15 16:54] VITALS: BP 147/77
[2018-09-15] MEDS: TAMSULOSIN HCL 0.4 MG CAP.SR.24H PO SCH (17:37)
== END 2018-09-15 20:31 | disposition home health service (06) | DRG 699 ==
LOC: ER 07:56 → EH 11:42 → 4N 14:05
PROVIDERS: ADMIT Internal Medicine; ATTEND Internal Medicine
DX: T83.511A Infection and inflammatory reaction due to indwelling urethral catheter, initial encounter (principal); G93.40 Encephalopathy, unspecified; N39.0 Urinary tract infection, site not specified; B96.20 Unspecified Escherichia coli [E. coli] as the cause of diseases classified elsewhere; B95.2 Enterococcus as the cause of diseases classified elsewhere; I50.9 Heart failure, unspecified; K21.9 Gastro-esophageal reflux disease without esophagitis; N40.0 Benign prostatic hyperplasia without lower urinary tract symptoms; Z66 Do not resuscitate; Z93.1 Gastrostomy status
CPT/HCPCS: 36415; 71045; 80053; 80061; 81001; 82550; 82553; 82803; 82962; 83605; 83735; 83880; 84100; 84484; 85025; 85027; 87040; 87086; 87088; 87186; 93005; 93010; 96365; 99285; J0692; J1956; J3370; J3490; J7030; J7060